=== PATIENT | male | born 1990 | race Caucasian/White ===

== ENCOUNTER 2017-09-10 03:29 | Emergency (ER) | payer OTHER ==
[2017-09-10] MEDS: KETOROLAC 30 MG INJ IV (04:06)
[2017-09-10] MEDS: CLINDAMYCIN 600 MG/D5W (PMX) 50 ML IVPB (05:24)
== END 2017-09-10 06:45 | disposition home or self-care (01) ==
LOC: FTE 03:29
DX: L03.211 Cellulitis of face (principal); F17.210 Nicotine dependence, cigarettes, uncomplicated
CPT/HCPCS: 96374; 96375; 99284-25; J1885